=== PATIENT | male | born 1955 | race African-American/Black ===

== ENCOUNTER 2023-11-17 09:44 | Emergency (ER) | payer MEDICAID, OTHER ==
[2023-11-17] MEDS ORDERED: Acetaminophen 500 MG TAB ONE (10:04)
[2023-11-17] MEDS ORDERED: fentaNYL 50 mcg/mL 1 mL Vial ONE (10:04)
[2023-11-17] MEDS ORDERED: Bacitracin 1 PK ONE (10:04)
== END 2023-11-17 11:58 | disposition home or self-care (01) ==
LOC: MADERS 09:44
DX: S42.121A Displaced fracture of acromial process, right shoulder, initial encounter for closed fracture (principal); S00.01XA Abrasion of scalp, initial encounter; I10 Essential (primary) hypertension; F17.210 Nicotine dependence, cigarettes, uncomplicated; Y04.0XXA Assault by unarmed brawl or fight, initial encounter
CPT/HCPCS: 70450; 70486; 72125; 96374; J3010